=== PATIENT | female | born 2000 | race Caucasian/White ===

== ENCOUNTER 2021-10-20 18:41 | Emergency (ER) ==
[~2021-10-20] VITALS: Ht 160 cm; Wt 80.1 kg
== END 2021-10-20 19:06 | disposition left against medical advice (07) ==
LOC: M ED 18:41
DX: Z53.21 Procedure and treatment not carried out due to patient leaving prior to being seen by health care provider (principal)

== ENCOUNTER 2022-02-02 21:53 | Inpatient (IN) | payer BC, SELFPAY ==
[~2022-02-02] VITALS: Ht 160 cm; Wt 76.2 kg
[2022-02-02 22:46] LABS: HEMATOCRIT 42.9 % (36.0-47.0); HEMOGLOBIN 15.2 g/dl (12.0-15.5); MEAN CORPUSCULAR HGB CONC 35.4 g/dl (32.0-36.5); MEAN CORPUSCULAR VOLUME 87.4 fl (80.0-96.0); PLATELET COUNT, AUTOMATED 326 10^3/uL (150-450); RED BLOOD COUNT 4.91 10^6/uL (4.00-5.40); WHITE BLOOD COUNT 11.3 10^3/uL (4.0-10.0)
[2022-02-02 23:15] LABS: HCG, SERUM QUALITATIVE NEGATIVE (NEGATIVE)
[2022-02-02 23:33] LABS: BLOOD UREA NITROGEN 9 MG/DL (7-18); CALCIUM LEVEL 9.8 MG/DL (8.5-10.1); CARBON DIOXIDE LEVEL 20 MEQ/L (21-32); CHLORIDE LEVEL 108 MEQ/L (98-107); CREATININE FOR GFR 0.81 MG/DL (0.55-1.30); GLUCOSE, FASTING 96 MG/DL (70-100); POTASSIUM SERUM 4.3 MEQ/L (3.5-5.1); SODIUM LEVEL 138 MEQ/L (136-145)
[2022-02-02 23:34] LABS: ACETAMINOPHEN LEVEL < 2.0 UG/ML (10.0-30.0); ALBUMIN 4.4 GM/DL (3.2-5.2); ALT/SGPT 19 U/L (12-78); BILIRUBIN,DIRECT 0.3 MG/DL (0.0-0.2); BILIRUBIN,TOTAL 0.6 MG/DL (0.2-1.0); ETHYL ALCOHOL (ETHANOL) 0.006 % (0.000-0.010); SALICYLATE LEVEL < 1.7 MG/DL (5.0-30.0); TOTAL PROTEIN 7.9 GM/DL (6.4-8.2)
[2022-02-02 23:40] LABS: RSV AMPLIFICATION NEGATIVE (NEGATIVE)
[2022-02-02] MEDS ORDERED: FLUO10CA18 PO (23:58)
[2022-02-02] MEDS ORDERED: NUVAMIS2 VA (23:58)
[2022-02-03] MEDS ORDERED: HOME MED LIST COMPLETE! XX SCH
[2022-02-03 02:12] LABS: AMPHETAMINES LEVEL URINE NEGATIVE (NEGATIVE); BARBITURATES URINE NEGATIVE (NEGATIVE); BENZODIAZEPINES URINE NEGATIVE (NEGATIVE); CANNABINOIDS URINE NEGATIVE (NEGATIVE); COCAINE METABOLITE URINE NEGATIVE (NEGATIVE); METHADONE URINE NEGATIVE (NEGATIVE); OPIATES URINE NEGATIVE (NEGATIVE); PHENCYCLIDINE URINE NEGATIVE (NEGATIVE)
[2022-02-04] MEDS: FLUoxetine 10 MG CAP PO SCH ×3 (14:45→17:31)
[2022-02-04] MEDS ORDERED: IBUPROFEN 600MG TAB PO ONE (18:20)
[2022-02-05] MEDS ORDERED: OLANZapine ORAL DISINTEGRATING TAB 5MG PO PRN (15:15)
[2022-02-05] MEDS ORDERED: ACETAMINOPHEN TAB 650MG DOSE (2X325MG) PO PRN (15:15)
[2022-02-05] MEDS ORDERED: MAALOX 30 ML SUSP *UDC PO PRN (15:15)
[2022-02-05] MEDS ORDERED: traZODone 50 MG TAB PO PRN (15:15)
[2022-02-05] MEDS ORDERED: MOM 30ML SUSPENSION UDC PO PRN (15:15)
[2022-02-05 15:51] LABS: RSV AMPLIFICATION NEGATIVE (NEGATIVE)
[2022-02-05 16:18] VITALS: BP 138/84
[2022-02-06 06:37] VITALS: BP 134/60
[2022-02-06] MEDS ORDERED: FLUoxetine 10 MG CAP PO SCH (09:00)
[2022-02-06 16:42] VITALS: BP 133/61
[2022-02-07 06:41] VITALS: BP 121/60
[2022-02-07] MEDS ORDERED: FLUoxetine 10 MG CAP PO SCH (12:00)
[2022-02-07] MEDS: FLUoxetine 20MG CAP PO SCH (12:11)
[2022-02-07 16:54] VITALS: BP_SYST 123; BP_DIAS 87; BP_DIAS 97
[2022-02-08 06:24] VITALS: BP 111/56
[2022-02-08] MEDS: FLUoxetine 20MG CAP PO SCH ×2 (15:43→15:49)
[2022-02-08 18:26] VITALS: BP 111/65
[2022-02-08] MEDS: PRAZOSIN 1 MG CAP PO SCH (21:44)
[2022-02-08] MEDS ORDERED: MIRTAZAPINE 15 MG TAB PO SCH (22:00)
[2022-02-08] MEDS: traZODone 50 MG TAB PO PRN (23:17)
[2022-02-09 06:54] VITALS: BP 125/58
[2022-02-09] MEDS: FLUoxetine 20MG CAP PO SCH (12:20)
[2022-02-09 18:10] VITALS: BP 115/57
[2022-02-09] MEDS: traZODone 50 MG TAB PO PRN (20:21)
[2022-02-09] MEDS: PRAZOSIN 1 MG CAP PO SCH (20:22)
[2022-02-10 06:32] VITALS: BP 120/57
[2022-02-10] MEDS: FLUoxetine 20MG CAP PO SCH (12:34)
[2022-02-10 22:25] VITALS: BP 115/58
[2022-02-10] MEDS: PRAZOSIN 1 MG CAP PO SCH (22:25)
[2022-02-10] MEDS: traZODone 50 MG TAB PO PRN (22:25)
[2022-02-11 06:41] VITALS: BP 127/56
[2022-02-11] MEDS ORDERED: traZODone 50 MG TAB PO PRN (12:00)
[2022-02-11 18:20] VITALS: BP 122/76
[2022-02-11] MEDS ORDERED: FLUoxetine 20MG CAP PO SCH (21:00)
[2022-02-11] MEDS: PRAZOSIN 1 MG CAP PO SCH (21:00)
[2022-02-12 06:25] VITALS: BP 121/61
[2022-02-12] MEDS ORDERED: MINI1CAP PO (09:08)
[2022-02-12] MEDS ORDERED: FLUO20CA22 PO (09:08)
[2022-02-12] MEDS ORDERED: TRAZ-252 PO (09:08)
== END 2022-02-12 12:52 | disposition home or self-care (01) | DRG 755 ==
LOC: EDBD 21:53 → M ED 21:53 → M ED INP 02-05 15:11 → EDBEDREQ 02-05 15:59 → EDBEDREQTM 02-05 17:29 → M PSY 02-05 17:32
PROVIDERS: ADMIT Psychiatry & Neurology Psychiatry; ATTEND Student in an Organized Health Care Education/Training Program
DX: F43.20 Adjustment disorder, unspecified (principal); F32.A Depression, unspecified; F43.10 Post-traumatic stress disorder, unspecified; F60.89 Other specific personality disorders; R45.851 Suicidal ideations; Z90.49 Acquired absence of other specified parts of digestive tract; F17.210 Nicotine dependence, cigarettes, uncomplicated; Z20.822 Contact with and (suspected) exposure to COVID-19; Z79.899 Other long term (current) drug therapy; Z62.810 Personal history of physical and sexual abuse in childhood; F41.8 Other specified anxiety disorders; Z63.5 Disruption of family by separation and divorce

== ENCOUNTER → 2022-10-22 | Outpatient (CLI) | payer OTHER ==
[~2022-10-22] MED LIST: ETON1VAG7 VA; FLUO10CA18 PO; FLUO20CA22 PO; MINI1CAP PO; TRAZ-252 PO
[2022-10-22 15:00] LABS: HEMATOCRIT 38.9 % (36.0-47.0); MEAN CORPUSCULAR HGB CONC 33.4 g/dl (32.0-36.5); MEAN CORPUSCULAR VOLUME 92.8 fl (80.0-96.0); PLATELET COUNT, AUTOMATED 310 10^3/uL (150-450); RED BLOOD COUNT 4.19 10^6/uL (4.00-5.40)
[2022-10-22 15:17] LABS: ALBUMIN 2.9 G/DL (3.2-5.2); ALKALINE PHOSPHATASE 97 U/L (46-116); ALT/SGPT 14 U/L (7.0-40); AST/SGOT 11 U/L (<34); BILIRUBIN,TOTAL 0.3 MG/DL (0.3-1.2); BLOOD UREA NITROGEN 8 MG/DL (9-23); CALCIUM LEVEL 8.8 MG/DL (8.5-10.1); CARBON DIOXIDE LEVEL 25 MMOL/L (20-31); CHLORIDE LEVEL 106 MMOL/L (98-107); CREATININE FOR GFR 0.49 MG/DL (0.55-1.30); GLUCOSE, FASTING 86 MG/DL (60-100); POTASSIUM SERUM 3.7 MMOL/L (3.5-5.1); SODIUM LEVEL 139 MMOL/L (136-145); TOTAL PROTEIN 6.2 G/DL (5.7-8.2)
[2022-10-22 17:16] LABS: GC DNA AMPLIFICATION NEGATIVE (NEGATIVE)
== END ==
LOC: M LAB 14:12
PROVIDERS: ATTEND Advanced Practice Midwife
DX: R51.9 Headache, unspecified (principal)

== ENCOUNTER 2022-12-19 22:46 | Emergency (ER) | payer OTHER ==
[~2022-12-19] VITALS: Ht 160 cm; Wt 91.1 kg
[2022-12-19 22:47] VITALS: BP 177/100; TEMP 97.8; O2SAT 95
== END 2022-12-20 00:32 | disposition left against medical advice (07) ==
LOC: M ED 22:46
DX: R04.0 Epistaxis (principal); Z53.21 Procedure and treatment not carried out due to patient leaving prior to being seen by health care provider

== ENCOUNTER 2022-12-19 23:00 | Outpatient (CLI) | payer OTHER ==
[~2022-12-19] VITALS: Ht 160 cm; Wt 91.3 kg
[2022-12-19 23:10] VITALS: BP 163/97
[2022-12-19 23:39] VITALS: BP 143/92
== END 2022-12-20 00:10 | disposition home or self-care (01) ==
LOC: M LDO 23:00
PROVIDERS: ATTEND Obstetrics & Gynecology
DX: O26.893 Other specified pregnancy related conditions, third trimester (principal); R04.0 Epistaxis; Z3A.32 32 weeks gestation of pregnancy; Z88.8 Allergy status to other drugs, medicaments and biological substances; Z79.899 Other long term (current) drug therapy
CPT/HCPCS: 59025; G0463

== ENCOUNTER 2023-01-26 09:54 | Inpatient (IN) | payer OTHER ==
[~2023-01-26] VITALS: Ht 160 cm; Wt 94.4 kg
[2023-01-26] MEDS ORDERED: LACTATED RINGER'S 1000 ML IV STA (10:16)
[2023-01-26] MEDS ORDERED: OXYTOCIN DRIP 30 UNITS in IV 1 EA IV PRN ×4 (10:20)
[2023-01-26] MEDS ORDERED: CARBOPROST TROMETHAMINE 250 MCG/ML AMP IM PRN (10:20)
[2023-01-26] MEDS ORDERED: ACETAMINOPHEN 500 MG TAB PO PRN (10:20)
[2023-01-26] MEDS ORDERED: LIDOCAINE 1% MDV 20ML VIAL INFIL PRN (10:20)
[2023-01-26] MEDS ORDERED: TRANEXAMIC ACID INJection 1,000 MG in NS 100 ML IV PRN (10:20)
[2023-01-26] MEDS ORDERED: HOME MED LIST COMPLETE! XX SCH (11:05)
[2023-01-26 11:30] LABS: HEMOGLOBIN 11.9 g/dl (12.0-15.5); MEAN CORPUSCULAR HEMOGLOBIN 29.4 pg (27.0-33.0); MEAN CORPUSCULAR HGB CONC 33.1 g/dl (32.0-36.5); MEAN CORPUSCULAR VOLUME 88.9 fl (80.0-96.0); PLATELET COUNT, AUTOMATED 241 10^3/uL (150-450); RED BLOOD COUNT 4.05 10^6/uL (4.00-5.40); WHITE BLOOD COUNT 14.4 10^3/uL (4.0-10.0)
[2023-01-26 11:33] LABS: APPEARANCE, URINE HAZY (CLEAR); BACTERIA, URINE AUTO 1+ (NEGATIVE); BILIRUBIN, URINE AUTO NEGATIVE (NEGATIVE); BLOOD, URINE BLOOD NEGATIVE (NEGATIVE); COLOR, URINE YELLOW (YELLOW); GLUCOSE, URINE (UA) AUTO NEGATIVE (NEGATIVE); KETONE, URINE AUTO TRACE mg/dL (NEGATIVE); LEUKOCYTE ESTERASE, URINE AUTO 2+ (NEGATIVE); MUCUS, URINE SMALL (NEGATIVE); NITRITE, URINE AUTO NEGATIVE (NEGATIVE); PROTEIN, URINE AUTO NEGATIVE (NEGATIVE); RBC, URINE AUTO 0 /HPF (0-3); SPECIFIC GRAVITY URINE AUTO 1.017 (1.002-1.035); SQUAMOUS EPITHELIAL CELL UR AU 4 /HPF (0-6); UROBILINOGEN, URINE AUTO 0.2 mg/dL (0.0-2.0); WBC, URINE AUTO 6 /HPF (0-3)
[2023-01-26 11:56] LABS: LDH LACTATE DEHYDROGENASE 164 U/L (120-246); URIC ACID 4.1 MG/DL (3.1-7.8)
[2023-01-26 11:58] LABS: ALT/SGPT < 9 U/L (7.0-40); AST/SGOT < 8 U/L (<34); BILIRUBIN,TOTAL 0.4 MG/DL (0.3-1.2); CREATININE FOR GFR 0.56 MG/DL (0.55-1.30); GLOMERULAR FILTRATION RATE > 60.0 (>60)
[2023-01-26] MEDS: ONDANSETRON 4MG 2ML VIAL IV PRN (13:55)
[2023-01-26] MEDS: miSOPROStol 50MCG 1/2 TABLET SL SCH ×2 (14:41→19:35)
[2023-01-26 15:56] LABS: TOTAL PROTEIN,RANDOM URINE 10.2 MG/DL (0.0-14.0)
[2023-01-26 16:01] LABS: CREATININE,RANDOM URINE 133.6 MG/DL
[2023-01-26 16:16] LABS: HIV 1&2 SCREEN NEGATIVE (NEGATIVE)
[2023-01-26] MEDS ORDERED: ACETAMINOPHEN 1000MG 100ML IV BAG IV ONE (16:55)
[2023-01-26 19:36] VITALS: BP 106/71
[2023-01-26 19:51] VITALS: BP 114/64
[2023-01-26 20:51] VITALS: BP 137/91
[2023-01-26 21:52] VITALS: BP 110/55
[2023-01-26 22:51] VITALS: BP 115/68
[2023-01-26 23:53] VITALS: BP 105/57
[2023-01-27] VITALS (35 sets, daily range): BP systolic 93–148; BP diastolic 51–92
[2023-01-27] MEDS: LR 1,000 ML IV SCH ×3 (00:19→14:41)
[2023-01-27] MEDS: NALBUPHINE HCL 10 MG/ML 1ML AMP IV PRN ×2 (01:43→13:47)
[2023-01-27] MEDS ORDERED: LR 1,000 ML IV SCH (06:25)
[2023-01-27] MEDS ORDERED: OXYTOCIN DRIP 30 UNITS in IV 1 EA IV SCH (06:25)
[2023-01-27] MEDS: FLUoxetine 20MG CAP PO SCH (12:58)
[2023-01-27] MEDS ORDERED: miSOPROStol 50MCG 1/2 TABLET PO ONE ×2 (18:20→22:20)
[2023-01-28] VITALS (51 sets, daily range): BP systolic 105–162; BP diastolic 53–94; O2SAT 97
[2023-01-28] MEDS: LR 1,000 ML IV SCH ×2 (03:36→08:15)
[2023-01-28] MEDS: ONDANSETRON 4MG 2ML VIAL IV PRN (03:37)
[2023-01-28] MEDS ORDERED: OXYTOCIN DRIP 30 UNITS in IV 1 EA IV SCH ×2 (04:10→17:10)
[2023-01-28] MEDS ORDERED: FENTANYL/ROPIVACAINE/NACL BAG 100 ML EPIDURAL SCH (08:15)
[2023-01-28] MEDS ORDERED: ONDANSETRON 4MG 2ML VIAL IV PRN (08:15)
[2023-01-28] MEDS ORDERED: LR 500 ML IV PRN (08:15)
[2023-01-28] MEDS ORDERED: diphenhydrAMINE 50MG/ML VIAL IV PRN (08:15)
[2023-01-28] MEDS ORDERED: NALOXONE INJ 0.4MG/1ML VIAL IV PRN (08:15)
[2023-01-28] MEDS ORDERED: EPIDURAL/PCA KEYS XX PRN (08:15)
[2023-01-28] MEDS ORDERED: ePHEDrine SULFATE 25 MG/5 ML(5MG/ML) SYRINGE IVP PRN (08:15)
[2023-01-28] MEDS: FLUoxetine 20MG CAP PO SCH (10:22)
[2023-01-28] MEDS ORDERED: DIBUCAINE 1% OINTMENT 30GM TOP PRN (17:10)
[2023-01-28] MEDS ORDERED: METHYLERGONOVINE MALEATE 0.2 MG TAB PO PRN (17:10)
[2023-01-28] MEDS ORDERED: IBUPROFEN 600MG TAB PO PRN (17:10)
[2023-01-28] MEDS ORDERED: DOCUSATE SODIUM 100MG CAPSULE PO PRN (17:10)
[2023-01-28] MEDS ORDERED: ACETAMINOPHEN 500 MG TAB PO PRN (17:10)
[2023-01-28] MEDS: ACETAMINOPHEN TAB 650MG DOSE (2X325MG) PO PRN (18:46)
[2023-01-29] MEDS: IBUPROFEN 800 MG TAB PO PRN ×2 (02:01→13:42)
[2023-01-29] MEDS: ACETAMINOPHEN TAB 650MG DOSE (2X325MG) PO PRN (05:29)
[2023-01-29 06:00] VITALS: BP 128/80; O2SAT 98
[2023-01-29] MEDS: PRENATAL VITAMINS CHEWABLE TABLET PO SCH (09:00)
[2023-01-29] MEDS: FLUoxetine 20MG CAP PO SCH (12:32)
[2023-01-29 18:00] VITALS: BP 134/75; O2SAT 98
[2023-01-30] MEDS: IBUPROFEN 800 MG TAB PO PRN (02:22)
[2023-01-30 06:00] VITALS: BP 128/63; O2SAT 97
[2023-01-30] MEDS: PRENATAL VITAMINS CHEWABLE TABLET PO SCH (08:11)
[2023-01-30] MEDS: FLUoxetine 20MG CAP PO SCH (12:45)
[2023-01-30 18:00] VITALS: BP 131/66; O2SAT 98
== END 2023-01-30 17:50 | disposition home or self-care (01) | DRG 807 ==
LOC: M LDI 09:54 → M OBS 01-28 18:10
PROVIDERS: ADMIT Advanced Practice Midwife; ATTEND Advanced Practice Midwife
PROC: 3E0P7GC Introduction of Other Therapeutic Substance into Female Reproductive, Via Natural or Artificial Opening (ICD-10-PCS; 2023-01-26)
PROC: 10E0XZZ Delivery of Products of Conception, External Approach (ICD-10-PCS; principal; 2023-01-28)
PROC: 0HQ9XZZ Repair Perineum Skin, External Approach (ICD-10-PCS; 2023-01-28)
DX: O13.4 Gestational [pregnancy-induced] hypertension without significant proteinuria, complicating childbirth (principal); Z37.0 Single live birth; Z3A.37 37 weeks gestation of pregnancy; O99.214 Obesity complicating childbirth; E66.9 Obesity, unspecified; O99.344 Other mental disorders complicating childbirth; F32.A Depression, unspecified; O70.0 First degree perineal laceration during delivery; O69.2XX0 Labor and delivery complicated by other cord entanglement, with compression, not applicable or unspecified

== ENCOUNTER 2023-05-25 14:10 | Emergency (ER) | payer OTHER ==
[~2023-05-25] VITALS: Ht 160 cm; Wt 85.5 kg
[2023-05-25 15:19] LABS: BASO % 0.6 % (0.0-1.0); EOS # 0.1 10^3/uL (0.0-0.5); EOS % 1.4 % (0.0-3.0); HEMATOCRIT 41.9 % (36.0-47.0); HEMOGLOBIN 14.4 g/dl (12.0-15.5); LYMPH # 2.5 10^3/uL (1.5-5.0); LYMPH % 35.1 % (24.0-44.0); MEAN CORPUSCULAR HEMOGLOBIN 29.6 pg (27.0-33.0); MEAN CORPUSCULAR HGB CONC 34.4 g/dl (32.0-36.5); MEAN CORPUSCULAR VOLUME 86.2 fl (80.0-96.0); MONO # 0.4 10^3/uL (0.0-0.8); MONO % 6.1 % (2.0-8.0); NEUTROPHILS % 56.7 % (36.0-66.0); PLATELET COUNT, AUTOMATED 361 10^3/uL (150-450); RED BLOOD COUNT 4.86 10^6/uL (4.00-5.40)
[2023-05-25 15:53] LABS: BLOOD UREA NITROGEN 11 MG/DL (9-23); CALCIUM LEVEL 9.3 MG/DL (8.5-10.1); CARBON DIOXIDE LEVEL 24 MMOL/L (20-31); CHLORIDE LEVEL 108 MMOL/L (98-107); CREATININE FOR GFR 0.68 MG/DL (0.55-1.30); GLOMERULAR FILTRATION RATE > 60.0 (>60); GLUCOSE, FASTING 97 MG/DL (60-100); HCG, SERUM QUANTITATIVE < 2.6 MIU/ML (<4.2); POTASSIUM SERUM 4.3 MMOL/L (3.5-5.1); SODIUM LEVEL 140 MMOL/L (136-145)
[2023-05-25 16:33] VITALS: BP 128/78; TEMP 97.6; O2SAT 97
== END 2023-05-25 16:34 | disposition home or self-care (01) ==
LOC: M ED 14:10
DX: N94.4 Primary dysmenorrhea (principal); Z87.59 Personal history of other complications of pregnancy, childbirth and the puerperium; Z79.899 Other long term (current) drug therapy; Z88.8 Allergy status to other drugs, medicaments and biological substances

== ENCOUNTER → 2023-07-29 | Outpatient (CLI) | payer OTHER ==
[2023-07-29 14:02] LABS: BASO % 0.4 % (0.0-1.0); EOS # 0.2 10^3/uL (0.0-0.5); HEMATOCRIT 38.1 % (36.0-47.0); HEMOGLOBIN 13.1 g/dl (12.0-15.5); LYMPH # 2.3 10^3/uL (1.5-5.0); LYMPH % 30.2 % (24.0-44.0); MEAN CORPUSCULAR HEMOGLOBIN 30.3 pg (27.0-33.0); MEAN CORPUSCULAR HGB CONC 34.4 g/dl (32.0-36.5); MONO # 0.3 10^3/uL (0.0-0.8); MONO % 3.9 % (2.0-8.0); NEUTROPHILS # 4.9 10^3/uL (1.5-8.5); NEUTROPHILS % 63.2 % (36.0-66.0); PLATELET COUNT, AUTOMATED 298 10^3/uL (150-450); RED BLOOD COUNT 4.33 10^6/uL (4.00-5.40); WHITE BLOOD COUNT 7.7 10^3/uL (4.0-10.0)
[2023-07-29 14:33] LABS: ALBUMIN 3.6 G/DL (3.2-5.2); ALKALINE PHOSPHATASE 83 U/L (46-116); ALT/SGPT 29 U/L (7.0-40); AST/SGOT 17 U/L (<34); BILIRUBIN,TOTAL 0.6 MG/DL (0.3-1.2); BLOOD UREA NITROGEN 11 MG/DL (9-23); CALCIUM LEVEL 8.9 MG/DL (8.5-10.1); CARBON DIOXIDE LEVEL 27 MMOL/L (20-31); CHLORIDE LEVEL 106 MMOL/L (98-107); CHOLESTEROL LEVEL 184 MG/DL (<200); CHOLESTEROL RISK RATIO 3.54 (<5); CREATININE FOR GFR 0.62 MG/DL (0.55-1.30); GLOMERULAR FILTRATION RATE > 60.0 (>60); GLUCOSE, FASTING 144 MG/DL (60-100); HDL CHOLESTEROL 51.9 MG/DL (>40); LDL CHOLESTEROL 106.9 MG/DL (<100); NON-HDL-C 132.1 MG/DL; POTASSIUM SERUM 3.9 MMOL/L (3.5-5.1); SODIUM LEVEL 139 MMOL/L (136-145); TOTAL PROTEIN 6.3 G/DL (5.7-8.2); TRIGLYCERIDES LEVEL 126 MG/DL (<150)
[2023-07-29 14:34] LABS: THYROID STIMULATING HORMONE 1.083 uIU/ML (0.55-4.78)
[2023-07-29 14:35] LABS: TOTAL 25(OH) VITAMIN D 8.6 NG/ML (20.0-100.0)
[2023-07-29 14:51] LABS: HCG, SERUM QUALITATIVE NEGATIVE (NEGATIVE)
== END ==
LOC: M LAB 13:31
PROVIDERS: ATTEND Physician Assistant
DX: Z30.44 Encounter for surveillance of vaginal ring hormonal contraceptive device (principal)

== ENCOUNTER 2023-11-09 12:22 | Emergency (ER) | payer OTHER ==
[~2023-11-09] VITALS: Ht 160 cm; Wt 84.3 kg
[~2023-11-09 12:22] MED LIST changes: +FLUO-290 PO; -FLUO10CA18 PO
[2023-11-09 13:31] LABS: BASO % 0.3 % (0.0-1.0); EOS # 0.2 10^3/uL (0.0-0.5); HEMATOCRIT 40.5 % (36.0-47.0); HEMOGLOBIN 13.8 g/dl (12.0-15.5); LYMPH # 2.9 10^3/uL (1.5-5.0); LYMPH % 30.6 % (24.0-44.0); MEAN CORPUSCULAR HEMOGLOBIN 30.6 pg (27.0-33.0); MEAN CORPUSCULAR HGB CONC 34.1 g/dl (32.0-36.5); MEAN CORPUSCULAR VOLUME 89.8 fl (80.0-96.0); MONO # 0.5 10^3/uL (0.0-0.8); MONO % 5.7 % (2.0-8.0); NEUTROPHILS # 5.8 10^3/uL (1.5-8.5); NEUTROPHILS % 61.1 % (36.0-66.0); PLATELET COUNT, AUTOMATED 339 10^3/uL (150-450); RED BLOOD COUNT 4.51 10^6/uL (4.00-5.40); WHITE BLOOD COUNT 9.6 10^3/uL (4.0-10.0)
[2023-11-09] MEDS ORDERED: FLUO20CA22 PO (13:47)
[2023-11-09] MEDS ORDERED: HOME MED LIST COMPLETE! XX SCH (13:50)
[2023-11-09 13:58] LABS: ALBUMIN 3.6 G/DL (3.2-5.2); ALKALINE PHOSPHATASE 86 U/L (46-116); ALT/SGPT 17 U/L (7.0-40); AST/SGOT < 8 U/L (<34); BILIRUBIN,DIRECT 0.1 MG/DL (<0.4); BILIRUBIN,TOTAL 0.3 MG/DL (0.3-1.2); BLOOD UREA NITROGEN 9 MG/DL (9-23); CALCIUM LEVEL 9.4 MG/DL (8.5-10.1); CARBON DIOXIDE LEVEL 25 MMOL/L (20-31); CHLORIDE LEVEL 107 MMOL/L (98-107); CREATININE FOR GFR 0.66 MG/DL (0.55-1.30); GLOMERULAR FILTRATION RATE > 60.0 (>60); GLUCOSE, FASTING 88 MG/DL (60-100); POTASSIUM SERUM 4.2 MMOL/L (3.5-5.1); SODIUM LEVEL 140 MMOL/L (136-145); TOTAL PROTEIN 6.5 G/DL (5.7-8.2)
[2023-11-09 14:04] VITALS: BP 126/85; TEMP 98.3; O2SAT 99
[2023-11-09 14:17] LABS: HCG, SERUM QUANTITATIVE 10983.8 MIU/ML (<4.2)
== END 2023-11-09 15:49 | disposition home or self-care (01) ==
LOC: M ED 12:22
DX: Z34.91 Encounter for supervision of normal pregnancy, unspecified, first trimester (principal); Z3A.01 Less than 8 weeks gestation of pregnancy; F17.290 Nicotine dependence, other tobacco product, uncomplicated; Z88.8 Allergy status to other drugs, medicaments and biological substances; Z79.899 Other long term (current) drug therapy

== ENCOUNTER 2023-11-15 09:57 | Emergency (ER) | payer OTHER ==
[~2023-11-15] VITALS: Ht 160 cm; Wt 83.4 kg
[2023-11-15 11:50] LABS: BASO % 0.3 % (0.0-1.0); EOS # 0.1 10^3/uL (0.0-0.5); EOS % 1.4 % (0.0-3.0); HEMATOCRIT 40.5 % (36.0-47.0); LYMPH # 2.4 10^3/uL (1.5-5.0); LYMPH % 26.1 % (24.0-44.0); MEAN CORPUSCULAR HEMOGLOBIN 30.9 pg (27.0-33.0); MEAN CORPUSCULAR HGB CONC 34.6 g/dl (32.0-36.5); MEAN CORPUSCULAR VOLUME 89.4 fl (80.0-96.0); MONO # 0.4 10^3/uL (0.0-0.8); MONO % 4.3 % (2.0-8.0); NEUTROPHILS # 6.2 10^3/uL (1.5-8.5); NEUTROPHILS % 67.7 % (36.0-66.0); PLATELET COUNT, AUTOMATED 310 10^3/uL (150-450); RED BLOOD COUNT 4.53 10^6/uL (4.00-5.40); WHITE BLOOD COUNT 9.1 10^3/uL (4.0-10.0)
[2023-11-15 12:17] LABS: BLOOD UREA NITROGEN 7 MG/DL (9-23); CALCIUM LEVEL 8.8 MG/DL (8.5-10.1); CARBON DIOXIDE LEVEL 24 MMOL/L (20-31); CHLORIDE LEVEL 106 MMOL/L (98-107); CREATININE FOR GFR 0.63 MG/DL (0.55-1.30); GLOMERULAR FILTRATION RATE > 60.0 (>60); GLUCOSE, FASTING 92 MG/DL (60-100); SODIUM LEVEL 136 MMOL/L (136-145)
[2023-11-15 12:31] LABS: HCG, SERUM QUANTITATIVE 33701.2 MIU/ML (<4.2)
[2023-11-15 13:35] VITALS: BP 120/71; TEMP 97.7; O2SAT 100
== END 2023-11-15 14:35 | disposition home or self-care (01) ==
LOC: M ED 09:57
DX: O20.0 Threatened abortion (principal); Z3A.01 Less than 8 weeks gestation of pregnancy; Z87.891 Personal history of nicotine dependence; Z88.8 Allergy status to other drugs, medicaments and biological substances; Z79.899 Other long term (current) drug therapy

== ENCOUNTER 2024-05-23 13:38 | Outpatient (CLI) | payer OTHER ==
[~2024-05-23] VITALS: Ht 160 cm; Wt 92.1 kg
[~2024-05-23 13:38] MED LIST changes: +FLUO-365 PO; -FLUO20CA22 PO
[2024-05-23 13:56] VITALS: BP 126/86
[2024-05-23] MEDS ORDERED: HOME MED LIST COMPLETE! XX SCH (14:00)
[2024-05-23] MEDS ORDERED: FAMOTIDINE 20 MG TAB PO ONE (15:00)
[2024-05-23 15:12] LABS: APPEARANCE, URINE HAZY (CLEAR); BACTERIA, URINE AUTO 1+ (NEGATIVE); BILIRUBIN, URINE AUTO NEGATIVE (NEGATIVE); BLOOD, URINE BLOOD NEGATIVE (NEGATIVE); COLOR, URINE YELLOW (YELLOW); GLUCOSE, URINE (UA) AUTO NEGATIVE (NEGATIVE); KETONE, URINE AUTO NEGATIVE (NEGATIVE); LEUKOCYTE ESTERASE, URINE AUTO 2+ (NEGATIVE); MUCUS, URINE SMALL (NEGATIVE); NITRITE, URINE AUTO NEGATIVE (NEGATIVE); PROTEIN, URINE AUTO NEGATIVE (NEGATIVE); RBC, URINE AUTO 1 /HPF (0-3); SPECIFIC GRAVITY URINE AUTO 1.019 (1.002-1.035); SQUAMOUS EPITHELIAL CELL UR AU 3 /HPF (0-6); UROBILINOGEN, URINE AUTO 0.2 mg/dL (0.0-2.0); WBC, URINE AUTO 6 /HPF (0-3)
== END 2024-05-23 15:52 | disposition home or self-care (01) ==
LOC: M LDO 13:38
PROVIDERS: ATTEND Advanced Practice Midwife
DX: O26.893 Other specified pregnancy related conditions, third trimester (principal); M54.50 Low back pain, unspecified; R25.2 Cramp and spasm; Z3A.33 33 weeks gestation of pregnancy
CPT/HCPCS: 59025; 81001; 87086; G0463

== ENCOUNTER → 2024-06-08 | Outpatient (CLI) | payer OTHER | LOC: M RAD 13:39 | PROVIDERS: ATTEND Nurse Practitioner Family | DX: O24.419 Gestational diabetes mellitus in pregnancy, unspecified control (principal); Z3A.35 35 weeks gestation of pregnancy ==

== ENCOUNTER → 2024-06-08 | Outpatient (REF) | payer OTHER | LOC: M PLALAB 11:25 | PROVIDERS: ATTEND Nurse Practitioner Family | DX: Z34.93 Encounter for supervision of normal pregnancy, unspecified, third trimester (principal); Z3A.35 35 weeks gestation of pregnancy ==

== ENCOUNTER → 2024-06-08 | Outpatient (CLI) | payer OTHER | LOC: M LAB 07:44 | PROVIDERS: ATTEND Nurse Practitioner Family | DX: R73.09 Other abnormal glucose (principal) ==

== ENCOUNTER 2024-06-16 00:49 | Outpatient (CLI) | payer OTHER ==
[~2024-06-16] VITALS: Ht 160 cm; Wt 95.7 kg
[2024-06-16 01:13] VITALS: BP 129/79; O2SAT 100
== END 2024-06-16 03:40 | disposition home or self-care (01) ==
LOC: M LDO 00:49
PROVIDERS: ATTEND Advanced Practice Midwife
DX: O47.03 False labor before 37 completed weeks of gestation, third trimester (principal); O24.410 Gestational diabetes mellitus in pregnancy, diet controlled; O09.33 Supervision of pregnancy with insufficient antenatal care, third trimester; Z3A.36 36 weeks gestation of pregnancy
CPT/HCPCS: 59025; 81001; 87086; G0463

== ENCOUNTER 2024-06-23 16:57 | Inpatient (IN) | payer OTHER ==
[~2024-06-23] VITALS: Ht 160 cm; Wt 96.4 kg
[2024-06-23] MEDS: LACTATED RINGER'S 1000 ML IV STA (11:59)
[2024-06-23] MEDS ORDERED: HOME MED LIST COMPLETE! XX SCH (17:15)
[2024-06-23 17:19] VITALS: BP 130/91
[2024-06-23 17:34] VITALS: BP 128/91
[2024-06-23 18:01] LABS: HEMATOCRIT 36.4 % (36.0-47.0); MEAN CORPUSCULAR HEMOGLOBIN 28.7 pg (27.0-33.0); MEAN CORPUSCULAR VOLUME 87.1 fl (80.0-96.0); PLATELET COUNT, AUTOMATED 211 10^3/uL (150-450); RED BLOOD COUNT 4.18 10^6/uL (4.00-5.40); WHITE BLOOD COUNT 10.6 10^3/uL (4.0-10.0)
[2024-06-23 18:07] VITALS: BP 126/82
[2024-06-23] MEDS ORDERED: TRANEXAMIC ACID INJection 1,000 MG in NS 100 ML IV PRN (18:30)
[2024-06-23] MEDS ORDERED: METHYLERGONOVINE MALEATE 0.2MG/ML 1ML VIAL IM PRN (18:30)
[2024-06-23] MEDS ORDERED: CARBOPROST TROMETHAMINE 250 MCG/ML AMP IM PRN (18:30)
[2024-06-23] MEDS ORDERED: OXYTOCIN DRIP 30 UNITS in IV 1 EA IV PRN (18:30)
[2024-06-23] MEDS ORDERED: LIDOCAINE 1% MDV 20ML VIAL INFIL PRN (18:30)
[2024-06-23] MEDS: miSOPROStol 50MCG 1/2 TABLET PO SCH (18:47)
[2024-06-23 19:04] LABS: HEPATITIS C VIRUS ABY INDEX < 0.02 INDEX (<0.8)
[2024-06-23 19:08] VITALS: BP 123/63
[2024-06-23 19:48] LABS: TOTAL PROTEIN,RANDOM URINE 17.3 MG/DL (0.0-14.0)
[2024-06-23 23:58] VITALS: BP 133/82
[2024-06-24] VITALS (30 sets, daily range): BP systolic 95–155; BP diastolic 48–94; O2SAT 98
[2024-06-24] MEDS: PROMETHAZINE 25MG/ML 1ML VIAL IV ONE (03:40)
[2024-06-24] MEDS: BUTORPHANOL 2 MG/ML 1ML VIAL IV ONE (03:41)
[2024-06-24] MEDS: LR 1,000 ML IV SCH (04:15)
[2024-06-24] MEDS: OXYTOCIN DRIP 30 UNITS in IV 1 EA IV SCH ×2 (04:15→12:30)
[2024-06-24] MEDS ORDERED: FENTANYL 2MCG/ML ROPIVACAINE 0.2% IN 0.9% NACL 100ML IVBAG As Ordered ONE (09:48)
[2024-06-24] MEDS ORDERED: fentaNYL 100 MCG/2 ML INJECTION As Ordered ONE (11:56)
[2024-06-24] MEDS: fentaNYL 100 MCG/2 ML INJECTION EPIDURAL ONE (11:59)
[2024-06-24] MEDS ORDERED: RHOGAM 300MCG (1500IU) INJ IM SCH (12:30)
[2024-06-24] MEDS ORDERED: ACETAMINOPHEN 325 MG TAB PO PRN (12:30)
[2024-06-24] MEDS ORDERED: DIBUCAINE 1% OINTMENT 30GM TOP PRN (12:30)
[2024-06-24] MEDS ORDERED: IBUPROFEN 600MG TAB PO PRN (12:30)
[2024-06-24] MEDS ORDERED: ANUSOL HC CREAM 30GM TOP PRN (12:30)
[2024-06-24] MEDS ORDERED: CALCIUM CARBONATE 500 MG CHEW U/D PO PRN (12:30)
[2024-06-24] MEDS ORDERED: DOCUSATE SODIUM 100MG CAPSULE PO PRN (12:30)
[2024-06-24] MEDS ORDERED: ePHEDrine SULFATE 25 MG/5 ML(5MG/ML) SYRINGE IVP PRN (12:45)
[2024-06-24] MEDS ORDERED: diphenhydrAMINE 50MG/ML VIAL IV PRN (12:45)
[2024-06-24] MEDS ORDERED: ONDANSETRON 4MG 2ML VIAL IV PRN (12:45)
[2024-06-24] MEDS ORDERED: NALOXONE INJ 0.4MG/1ML VIAL IV PRN (12:45)
[2024-06-24] MEDS ORDERED: LR 500 ML IV PRN (12:45)
[2024-06-24] MEDS ORDERED: EPIDURAL/PCA KEYS XX PRN (12:45)
[2024-06-24] MEDS: FENTANYL/ROPIVACAINE/NACL BAG 100 ML EPIDURAL SCH (13:01)
[2024-06-24] MEDS: IBUPROFEN 800 MG TAB PO PRN (14:28)
[2024-06-24] MEDS: ACETAMINOPHEN 500 MG TAB PO PRN (18:27)
[2024-06-24] MEDS: ONDANSETRON 4MG 2ML VIAL IV PRN (18:28)
[2024-06-25 06:17] VITALS: BP 113/64; O2SAT 99
[2024-06-25] MEDS: FERROUS SULFATE 325MG TAB PO SCH (09:05)
[2024-06-25] MEDS: PRENATAL VITAMINS CHEWABLE TABLET PO SCH (09:07)
[2024-06-25 18:00] VITALS: BP 126/77; O2SAT 98
[2024-06-25] MEDS: SERTRALINE HCL 25 MG TABLET PO SCH (21:15)
[2024-06-26 05:41] VITALS: BP 126/82; O2SAT 99
[2024-06-26] MEDS ORDERED: MEASLES,MUMPS,RUBELLA VACCINE INJ (MMR-II) SC.IMMUN ONE (09:00)
[2024-06-26] MEDS ORDERED: ACET-683 PO (11:52)
[2024-06-26] MEDS ORDERED: FERR1TAB8 PO (11:52)
[2024-06-26] MEDS ORDERED: SERT25TA21 PO (11:52)
[2024-06-26] MEDS ORDERED: IBUP-1022 PO (11:52)
[2024-06-26] MEDS ORDERED: COLA100C5 PO (11:52)
== END 2024-06-26 13:10 | disposition home or self-care (01) | DRG 807 ==
LOC: M LDI 16:57 → M OBS 06-24 14:33
PROVIDERS: ADMIT Obstetrics & Gynecology; ATTEND Obstetrics & Gynecology
PROC: 3E0P7GC Introduction of Other Therapeutic Substance into Female Reproductive, Via Natural or Artificial Opening (ICD-10-PCS; 2024-06-23)
PROC: 10E0XZZ Delivery of Products of Conception, External Approach (ICD-10-PCS; principal; 2024-06-24)
DX: O24.420 Gestational diabetes mellitus in childbirth, diet controlled (principal); Z37.0 Single live birth; Z3A.37 37 weeks gestation of pregnancy

== ENCOUNTER → 2024-09-24 | Outpatient (CLI) | payer OTHER ==
[~2024-09-24] MED LIST changes: +ACET-683 PO; +COLA100C5 PO; +FERR1TAB8 PO; +IBUP-1022 PO; +SERT25TA21 PO
== END ==
LOC: M WUC 12:29
PROVIDERS: ATTEND Student in an Organized Health Care Education/Training Program
DX: M25.561 Pain in right knee (principal)